=== PATIENT | female | born 1935 ===

== ENCOUNTER 2020-08-23 06:44 | Outpatient (CLI) | payer MEDICARE, SELFPAY ==
[2020-08-23 07:18] VITALS: BMI 24.4
--- NOTE | 2020-08-23 07:21 | ECG_ITS ---
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 Interpretive Statements NAME OF STUDY: LEXISCAN SESTAMIBI STRESS TEST INDICATION: Left bundle branch block PROCEDURE: At the baseline, the blood pressure was 156/63 mmHg with a heart rate of 50 bpm. The electrocardiogram showed sinus bradycardia, normal axis with left bundle branch block. The Lexiscan was infused over a period of 20 seconds. A total of 0.4 milligrams of Lexiscan was infused. The stress phase was continued for a total of 5 minutes. Heart rate at the end of the stress phase was 70 bpm with a blood pressure of 174/63 mmHg. The EKG at the peak infusion revealed sinus rhythm with artifact and left bundle branch block. Sestamibi was injected 20 seconds after the Lexiscan infusion. Blood pressure at the end of the recovery phase was 175/57 mmHg with a heart rate of 66 beats per minute. CONCLUSION: 1. Nondiagnostic EKG with LexiScan infusion given baseline left bundle branch block. 2. No LexiScan induced chest pain or cardiac arrhythmia. 3. Normal blood pressure and heart rate response. 4. Sestamibi/sestamibi perfusion scan pending; see separate report. Electronically Signed On 08-28-2020 17:44:51 CDT by Delmy Elizabeth M.D. [id number]
--- NOTE | 2020-08-23 07:21 | NMCV_ITS ---
NM nehemiah perf SPECT r/s* [id number] Quirino, Rena Age: 84 Gender: F : 1935 Exam Date: 08/23/2020 07:49 Ordering Phys: Delmy Elizabeth MD ([email or web address]) Technologist: BROOK Mosquera Exam Location: [facility] Indications: LBBB STRESS TEST Please see separate stress test report in [facility] for full findings IMAGE PROTOCOL Rest/Stress 1 Lexiscan Day Radiopharmaceutical Dose (mCi) Administration Site Administered by Rest: Tc-99m 10.7 IV BROOK Espinoza Sestamibi Stress:Tc-99m 32.7 IV BROOK Mosquera Sestamiavani Rest: 23-Aug-2020 60 Discovery 630 Stress: 23-Aug-2020 30 Discovery 630 0.4mg Lexiscan. Images obtained in supine and prone position. SPECT RESULTS Technical Quality: Excellent Raw Data Analysis: Normal Image Corrections: No attenuation or motion correction applied Summed Stress Score: 0 Summed Rest Score: 0 Summed Difference Score: 0 PERFUSION FINDINGS SPECT images demonstrate homogeneous tracer distribution throughout the myocardium. FUNCTIONAL RESULTS (calculated via Gated SPECT) Stress Image LV EF (%): 76 Stress EDV (mL):63 TID: 0.88 Stress ESV (mL):15 FUNCTIONAL FINDINGS: The left ventricle is normal in size. Transient Ischemia Dilatation of 0.88. There is normal left ventricular systolic function. The left ventricular ejection fraction is normal with a value of 76%. There is normal left ventricular wall thickening with no regional wall motion abnormality. Normal end diastolic and end systolic volumes. IMPRESSIONS 1. Myocardial perfusion imaging is normal. 2. Overall left ventricular systolic function is normal without regional wall motion abnormalities. 3. The left ventricular ejection fraction is normal with a value of 76%. 4. Scan indicates low risk for cardiac events. Delmy Elizabeth MD (Electronically Signed) Final Date: 28 August 2020 17:42 S
[2020-08-23 08:46] VITALS: BP 175/57; PULSE 66
[2020-08-23] MEDS: regadenoson 0.4 Mg/5 ml Syringe IVP (08:46)
== END 2020-08-23 06:45 | disposition home or self-care (01) ==
LOC: CDL 06:47
PROVIDERS: PCP Internal Medicine; Visit Provider Internal Medicine Cardiovascular Disease
DX: I44.7 Left bundle-branch block, unspecified (principal)
CPT/HCPCS: 78452; 93017; A9500; J2785

== ENCOUNTER 2020-09-08 09:07 | Emergency (ER) | payer MEDICARE, SELFPAY ==
[2020-09-08] VITALS (22 sets, daily range): BP systolic 171–199; BP diastolic 57–99; PULSE 53–75; RESP 15–26; TEMP 36.5; O2SAT 86–100
--- NOTE | 2020-09-08 09:09 | XRR_ITS ---
PROCEDURE INFORMATION: Exam: XR Chest Exam date and time: 09/08/2020 9:09 AM Age: 84 years old Clinical indication: Cough TECHNIQUE: Imaging protocol: XR of the chest. Views: 1 view. COMPARISON: No relevant prior studies available. FINDINGS: Lungs: Bilateral prominent interstitial markings with mild increased vascular markings. No focal consolidation. Pleural spaces: Unremarkable. No pleural effusion. No pneumothorax. Heart/Mediastinum: Cardiac silhouette mildly enlarged. Aortic calcifications noted. Bones/joints: No acute bony abnormality appreciated. XR/XR chest 1V portable [id number] IMPRESSION: Nonspecific mildly increased interstitial markings bilaterally with prominent vascularity and mild enlargement of the cardiac silhouette. Findings may represent mild fluid overload versus nonspecific infectious or inflammatory airways process. No focal consolidation.
--- NOTE | 2020-09-08 09:09 | CTR_ITS ---
PROCEDURE INFORMATION: Exam: CT Head Without Contrast Exam date and time: 09/08/2020 9:09 AM Age: 84 years old Clinical indication: Altered mental status/memory loss and visual disturbance; Confusion or disorientation; Additional info: Headache TECHNIQUE: Imaging protocol: Computed tomography of the head without contrast. Radiation optimization: All CT scans at this facility use at least one of these dose optimization techniques: automated exposure control; mA and/or kV adjustment per patient size (includes targeted exams where dose is matched to clinical indication); or iterative reconstruction. COMPARISON: No relevant prior studies available. RADIATION DOSE METRICS: Total DLP (mGy-cm): 688.03 FINDINGS: Brain: No intracranial hemorrhage. Generalized cerebral and cerebellar atrophy. Mild decreased attenuation of the periventricular white matter which is nonspecific but compatible with chronic microvascular ischemia. Scattered subcentimeter chronic appearing lacunar infarcts within the bilateral basal ganglia, left thalamus, roselia to the left of midline, and left cerebellar hemisphere. No evidence of acute territorial infarct. Normal de la torre-white differentiation. No abnormal mass effect or midline shift. No extra-axial fluid collection. Cerebral ventricles: Mild ventriculomegaly in the setting of atrophy. No evidence of hydrocephalus. Paranasal sinuses: No acute sinusitis. Solitary opacified right posterior ethmoid air cell. 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 Mastoid air cells: Visualized mastoid air cells are well aerated. Bones/joints: No acute fracture. Old dina holes incidentally noted right frontal and parietal bones. Soft tissues: Unremarkable. CT/CT head wo con* [id number] IMPRESSION: 1. No acute findings on non-contrast CT. 2. Age related atrophy and likely chronic microvascular Radiation Dose CTDIVOL = (mGy): DLP = 688.03 (mGy-cm)
--- NOTE | 2020-09-08 09:10 | ECG_ITS ---
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 Measurements Intervals [place] Rate: 53 P: 26 [place]: 163 QRS: -11 QRSD: 144 T: 83 QT: 459 QTc: 431 Interpretive Statements SINUS BRADYCARDIA LEFT BUNDLE BRANCH BLOCK [120+ ms QRS DURATION, 80+ ms Q/S IN V1/V2, 85+ ms R IN I/aVL/V5/V6] No previous ECG available for comparison Electronically Signed On 09-09-2020 21:02:54 CDT by Kim Amaro M.D. [id number]
--- NOTE | 2020-09-08 09:16 | W.ED.GENADLT ---
HPI - General Adult General: Chief complaint: Neuro Symptoms/Deficit Stated complaint: RIGHT FACIAL DROOP; SLURRED SPEECH Time Seen by Provider: 09/08/20 09:08 History of Present Illness: HPI narrative: This patient is a 84-year-old female who presents to the emergency department for strokelike symptoms. Last known well time was approximately 3 hours ago around 6 AM this morning. Patient reportedly had a stroke in 2015 at that time did have TPA given to her in [place]. Patient has inability to speak at this time has a leftward gaze right-sided facial droop and inability to use her right side. Patient mumbles and has dysarthria. Does not follow instructions. Code stroke was called. Patient last known blood pressure was 200 systolic. Nursing staff try to get an accurate blood pressure. Concerning for most likely not be a candidate for TPA due to blood pressure and her age of 84. We will defer to neurology. We will continue to monitor patient. Stroke protocol is active. Location: face, mouth, eyes, right and upper extremity Associated symptoms: Reports headache(s); Deny chest pain, dyspnea, nausea, rash, palpitations or vomiting Review of Systems General: Reports: 10 or more systems reviewed and unremarkable except in HPI and below, ROS unobtainable due to medical condition and ROS unobtainable due to mental status Const: Denies: fever(s), chills, body aches or fatigue Eyes: Denies: change in vision or blurry vision ENMT: Denies: throat pain, hoarseness or mouth pain Card: Denies: chest pain, palpitations, irregular heart rhythm, edema, swelling of feet/ankles or lightheadedness Resp: Denies: dyspnea, productive cough, non-productive cough, wheezing or pain on inspiration GI: Denies: abdominal pain, nausea or vomiting : Denies: flank pain, difficulty voiding, dysuria, urinary frequency, urinary urgency or urinary hesitancy Musc: Denies: neck pain, back pain, extremity pain, extremity swelling, joint pain, joint swelling, joint redness, joint warmth or limited range of motion Skin/Breast: Denies: rash, pruritus, erythema or skin tenderness Neuro: Reports: headache(s), numbness in extremities, weakness in extremities, sensory changes, difficulty walking, Slurred speech present and difficulty communicating thoughts Psych: Denies: anxiety or depression PFSH ED PFSH: Medical History Diabetes History of CVA (cerebrovascular accident) HTN (hypertension) Hx of deep venous thrombosis Hx of seizure disorder Rheumatoid arthritis Surgical History Hx of cataract surgery Hx of cholecystectomy Social History Smoking and tobacco status: never smoked Alcohol intake: never Physical Exam Const: COMMON NORMALS: no acute distress, average body habitus, no limitations, healthy appearing, alert and well nourished HENMT: COMMON NORMALS: normocephalic, atraumatic, hearing grossly normal bilaterally, external ears normal, EAC's normal, TM's normal bilaterally, Normal external nose present, Normal nasal mucous membranes and turbinates present, moist oral mucous membranes, oropharynx normal, dentition normal and gingiva normal HEAD & SCALP: normocephalic and atraumatic FACE & SINUS: Flattened naso-labial fold present Right NOSE: Normal external nose present and Normal nasal mucous membranes and turbinates present EXTERNAL EAR: Yes external ears normal EXTERNAL AUDITORY CANAL: EAC's normal TYMPANIC MEMBRANE: TM's normal bilaterally Neck/C-Spine: COMMON NORMALS: full ROM, no lymphadenopathy, supple, no JVD, Thyroid normal and No carotid bruits THYROID: Thyroid normal Chest: COMMONS NORMALS: normal inspection of the chest, normal palpation of entire chest wall, normal inspection of the breasts and normal palpation of the breasts Breast/axilla inspection: Yes normal inspection of the breasts BREAST/AXILLA PALPATION: Yes normal palpation of the breasts Resp: COMMON NORMALS: normal respiratory effort, No retractions, No use of accessory muscles, clear to auscultation bilaterally and percussion normal AUSCULTATION: clear to auscultation bilaterally PERCUSSION: percussion normal Cardio: COMMON NORMALS: no JVD, regular rate, regular rhythm, S1 normal heart sound present, S2 normal heart sound present, No gallops present (Cardio), No clicks present (Cardio), No murmurs present (Cardio), No rub (Cardio) and Peripheral pulses 2+ throughout RATE: regular rate RHYTHM: regular rhythm HEART SOUNDS: S1 normal heart sound present and S2 normal heart sound present PERIPHERAL PULSES: Peripheral pulses 2+ throughout GI: COMMON NORMALS: Normal to inspection, nondistended, normoactive bowel sounds present, Soft to palpation, non-tender, No hepatosplenomegaly present, no masses and no bruits PALPATION: Yes Soft to palpation and Yes No hepatosplenomegaly present : COMMON NORMALS: Yes no CVA tenderness, Yes normal external appearance, Yes normal appearance of the vagina, Yes normal appearance of the cervix, Yes normal bimanual exam, Yes No adnexal tenderness and Yes no masses BLADDER/KIDNEY EXAM: Yes no CVA tenderness BIMANUAL EXAM - VAGINA & UTERUS: Yes normal bimanual exam Back/Pelvis: COMMON NORMALS: no CVA tenderness, thoracic and lumbar spine normal to inspection, no thoracic nor lumbar tenderness, thoraco-lumbar ROM normal and straight leg raise negative bilaterally Extremity: COMMON NORMALS: normal to inspection, full ROM, capillary refill normal, no joint enlargement, no clubbing, cyanosis or edema, no calf tenderness and no pedal edema Neuro: SENSORIUM/ORIENTATION: Yes alert and Yes Orientation impaired CRANIAL NERVES: Yes CN III (oculomotor) CN III laterality: bilateral, Yes CN VII (facial) Laterality: right, Yes CN XI (spinal accessory) CN XI findings: right shoulder elevation abnormal and right lateral head rotation abnormal and Yes CN XII (hypoglossal) CN XII findings: deviation of tongue to the left SPEECH: abnormal speech Details: garbled GAIT: Yes Unable to assess gait SENSORY EXAM: Yes extremities (Right-sided deficit weakness and sensory loss) Course Reevaluation(s): Reevaluation #1: I did discuss at length with patient's daughter Jazmine Rose,. She request the patient be given TPA if it is available and there is no contraindications. She understands the of the risk of causing a severe hemorrhagic stroke from an ischemic stroke and the patient's advanced age and hypertension. She states she understands her wishes of TPA can be given approved by neurology she request that be given. We will continue to monitor the patient neurology is doing telemedicine assessment at this time. Time: 09:46 Reevaluation #2: Daughter is at the bedside with telemedicine with Dr. Solano neurology from [facility]. Dr. Solano is recommending TPA CTA and hypertension control. Blood pressure 187/72 at this time. Patient be given 10 of hydralazine. Family member state understanding the risk and concerns of TPA Time: 09:56 Reevaluation #3: Patient's blood pressure back into the 190s. Additional hydralazine to be given. Time: 10:49 Consultations: Consultation #1: I discussed at length with Dr. Solano neurology telestroke from [facility]. She will sign an and do evaluation on patient. Time: 09:36 Consultation #2: I did discuss at length with [facility] who deferred due to being on ICU and ER divert. Will contact back at [facility] for transfer. Helicopter transport ETA 10 minutes. Time: 10:02 Consultation #3: I have discussed at length with neurology at [facility] Dr. Sweeney. He has accepted this patient for transfer straight to the neurological floor. He also recommends TPA he request hold CTA of the head and transport the patient and they will do the CTA upon arrival to [facility]. Patient's family is aware and they are still aware of the significant risk of intracranial hemorrhage. They state understanding. Patient be transported soon as possible Time: 10:13 Vital Signs: Vital signs: Vital Signs Temperature 97.7 F 09/08/20 09:16 Pulse Rate 68 09/08/20 11:05 Respiratory Rate 21 H 09/08/20 11:05 Blood Pressure 173/69 09/08/20 11:05 Pulse Oximetry 99 09/08/20 11:05 MDM - General Adult MDM Narrative: Medical decision making narrative: This patient is a 84-year-old female who presents to the emergency department for strokelike symptoms. Last known well time was approximately 3 hours ago around 6 AM this morning. Patient reportedly had a stroke in 2014 at that time did have TPA given to her in [place]. Patient has inability to speak at this time has a leftward gaze right-sided facial droop and inability to use her right side. Patient mumbles and has dysarthria. Does not follow instructions. Code stroke was called. Patient last known blood pressure was 200 systolic. Nursing staff try to get an accurate blood pressure. Concerning for most likely not be a candidate for TPA due to blood pressure and her age of 84. We will defer to neurology. We will continue to monitor patient. Stroke protocol is active I did discuss at length with patient's daughter Jazmine Rose,. She request the patient be given TPA if it is available and there is no contraindications. She understands the of the risk of causing a severe hemorrhagic stroke from an ischemic stroke and the patient's advanced age and hypertension. She states she understands her wishes of TPA can be given approved by neurology she request that be given. We will continue to monitor the patient neurology is doing telemedicine assessment at this time. I discussed at length with Dr. Solano neurology telestroke from [facility]. She will sign an and do evaluation on patient. Daughter is at the bedside with telemedicine with Dr. Solano neurology from [facility]. Dr. Solano is recommending TPA CTA and hypertension control. Blood pressure 187/72 at this time. Patient be given 10 of hydralazine. Family member state understanding the risk and concerns of TPA I have discussed at length with neurology at [facility] Dr. Sweeney. He has accepted this patient for transfer straight to the neurological floor. He also recommends TPA he request hold CTA of the head and transport the patient and they will do the CTA upon arrival to [facility]. Patient's family is aware and they are still aware of the significant risk of intracranial hemorrhage. They state understanding. Patient be transported soon as possible Lab Data: Labs: Lab Results 09/08/20 09/08/20 09/08/20 Range/Units 09:16 09:16 09:16 WBC 6.6 (4.0-10.0) 10^3/ uL RBC 4.42 (4.1-5.3) 10^6/u L Hgb 13.3 (11.5-15.3) g/dL Hct 39.9 (37.0-47.0) % MCV 90.3 (81-99) fL MCH 30.1 (28.0-34.0) pg MCHC 33.3 (30.0-36.0) g/dL RDW 12.9 (12.1-15.1) % Plt Count 217 (130-400) 10^3/c mm MPV 9.4 (7.4-10.4) fL Neut % (Auto) 70.2 % Lymph % (Auto) 20.1 % Mccone % (Auto) 7.0 % Eos % (Auto) 2.1 % Baso % (Auto) 0.3 % Neut # (Auto) 4.61 (1.8-7.7) 10^3/u L Lymph # (Auto) 1.3 (0.8-4.8) 10^3/u L Mccone # (Auto) 0.5 (0.2-0.9) 10^3/u L Eos # (Auto) 0.1 (0.0-0.8) 10^3/u L Baso # (Auto) 0.0 (0.0-0.1) 10^3/u L Nucleated RBC % (a uto) 0 % Nucleated RBCs # 0.0 /100WBC PT 13.80 (12.1-14.9) SECO NDS INR 1.02 (0.8-1.2) APTT 23.7 L (23.9-36.7) SECO NDS Sodium 139 (136-145) mmol/L Potassium 4.6 (3.5-5.1) mmol/L Chloride 104 (98-107) mmol/L Carbon Dioxide 23 (22-29) mmol/L Anion Gap 16.6 (5-19) BUN 18 (8-23) mg/dL Creatinine 1.0 H (0.5-0.9) mg/dL GFR Calculation Not Reportable Glucose 252 H (65-115) mg/dL POC Glucose (70-110) mg/dL Calculated Osmolal ity 298 H (285-295) mOsm/k g Calcium 9.4 (8.5-10.5) mg/dL Total Bilirubin 0.3 (0.15-1.2) mg/dL AST 13 (0-32) U/L ALT 20 (0-33) U/L Alkaline Phosphata se 99 (35-105) IU/L Troponin T Baselin e (0-10) ng/L NT-Pro-B Natriuret Pep 509 H (0-450) pg/mL Total Protein 6.5 L (6.6-8.7) g/dL Albumin 4.3 (3.5-5.2) g/dL Globulin 2.2 (1.3-4.6) g/dL 09/08/20 09/08/20 Range/Units 09:16 09:30 WBC (4.0-10.0) 10^3/ uL RBC (4.1-5.3) 10^6/u L Hgb (11.5-15.3) g/dL Hct (37.0-47.0) % MCV (81-99) fL MCH (28.0-34.0) pg MCHC (30.0-36.0) g/dL RDW (12.1-15.1) % Plt Count (130-400) 10^3/c mm MPV (7.4-10.4) fL Neut % (Auto) % Lymph % (Auto) % Mccone % (Auto) % Eos % (Auto) % Baso % (Auto) % Neut # (Auto) (1.8-7.7) 10^3/u L Lymph # (Auto) (0.8-4.8) 10^3/u L Mccone # (Auto) (0.2-0.9) 10^3/u L Eos # (Auto) (0.0-0.8) 10^3/u L Baso # (Auto) (0.0-0.1) 10^3/u L Nucleated RBC % (a uto) % Nucleated RBCs # /100WBC PT (12.1-14.9) SECO NDS INR (0.8-1.2) APTT (23.9-36.7) SECO NDS Sodium (136-145) mmol/L Potassium (3.5-5.1) mmol/L Chloride (98-107) mmol/L Carbon Dioxide (22-29) mmol/L Anion Gap (5-19) BUN (8-23) mg/dL Creatinine (0.5-0.9) mg/dL GFR Calculation Glucose (65-115) mg/dL POC Glucose 256 H (70-110) mg/dL Calculated Osmolal ity (285-295) mOsm/k g Calcium (8.5-10.5) mg/dL Total Bilirubin (0.15-1.2) mg/dL AST (0-32) U/L ALT (0-33) U/L Alkaline Phosphata se (35-105) IU/L Troponin T Baselin e 13 H (0-10) ng/L NT-Pro-B Natriuret Pep (0-450) pg/mL Total Protein (6.6-8.7) g/dL Albumin (3.5-5.2) g/dL Globulin (1.3-4.6) g/dL Imaging Data^: CT Head: Attestation: I personally reviewed and interpreted this imaging study as follows: Radiologist's impression: IMPRESSION: 1. No acute findings on non-contrast CT. 2. Age related atrophy and likely chronic microvascular EKG Data^: EKG 1: Attestation: I personally reviewed and interpreted this EKG as follows: EKG interpretation date: 09/08/20 EKG interpretation time: : Prior EKG tracings: not available for review Interpretation: Sinus bradycardia with a left bundle branch block heart rate 53 Computer generated interpretation: Head CT 09/08/20 09:09 IMPRESSION: 1. No acute findings on non-contrast CT. 2. Age related atrophy and likely chronic microvascular Radiation Dose CTDIVOL = (mGy): DLP = 688.03 (mGy-cm) Critical Care Time Critical Care Time: Critical Care Time: Yes Total Critical Care Time: 120 Attestation: Critical care in the emergency department TPA given for acute stroke transfer to [facility] Discharge Plan Discharge Patient Disposition: Xfer Short-Term Hosp Clinical Impression: Acute CVA (cerebrovascular accident), Hx of seizure disorder, History of CVA (cerebrovascular accident), HTN (hypertension) Condition: Stable Referrals: Stephanie Jean DO [Primary Care Provider] - Coding Level of Care Code ED Metallurgical Engineer for Chg Fwd Exam Comprehensive
[2020-09-08 09:25] LABS: Basophils % 0.3 %; Eosinophils # 0.1 10^3/uL (0.0-0.8); Eosinophils % 2.1 %; Hematocrit 39.9 % (37.0-47.0); Hemoglobin 13.3 g/dL (11.5-15.3); Lymphocytes # 1.3 10^3/uL (0.8-4.8); Lymphocytes % 20.1 %; Mean Corpuscular HGB Conc 33.3 g/dL (30.0-36.0); Mean Corpuscular Hemoglobin 30.1 pg (28.0-34.0); Mean Corpuscular Volume 90.3 fL (81-99); Mean Platelet Volume 9.4 fL (7.4-10.4); Monocytes # 0.5 10^3/uL (0.2-0.9); Neutrophils # 4.61 10^3/uL (1.8-7.7); Neutrophils % 70.2 %; Nucleated Red Blood Cells % 0 %; Platelet Count 217 10^3/cmm (130-400); Red Blood Count 4.42 10^6/uL (4.1-5.3); Red Cell Distribution Width 12.9 % (12.1-15.1); White Blood Count 6.6 10^3/uL (4.0-10.0)
[2020-09-08 09:34] LABS: Glucose Point of Care 256 mg/dL (70-110)
--- NOTE | 2020-09-08 09:34 | NUR.SHIFT ---
Patient is severely aphasic, unable to answer questions at this time. No outward s/s of pain or discomfort are noted.
[2020-09-08 09:49] LABS: INR 1.02 (0.8-1.2)
[2020-09-08 09:50] LABS: Partial Thromboplastin Time 23.7 SECONDS (23.9-36.7)
[2020-09-08 09:57] LABS: Alanine Aminotransferase 20 U/L (0-33); Albumin Level 4.3 g/dL (3.5-5.2); Alkaline Phosphatase 99 IU/L (35-105); Anion Gap 16.6 (5-19); Aspartate Amino Transferase 13 U/L (0-32); Blood Urea Nitrogen 18 mg/dL (8-23); Calcium 9.4 mg/dL (8.5-10.5); Carbon Dioxide 23 mmol/L (22-29); Chloride 104 mmol/L (98-107); Globulin 2.2 g/dL (1.3-4.6); Glucose 252 mg/dL (65-115); NT Pro B Type Natriuretic Pept 509 pg/mL (0-450); Osmolality Calculated 298 mOsm/kg (285-295); Potassium 4.6 mmol/L (3.5-5.1); Sodium 139 mmol/L (136-145); Total Bilirubin 0.3 mg/dL (0.15-1.2); Total Protein 6.5 g/dL (6.6-8.7)
[2020-09-08] MEDS: hyDRALAzine 20 mg/mL INJ 1 mL 5 MG IVP (10:02)
[2020-09-08 10:03] LABS: Troponin(5th) Baseline 13 ng/L (0-10)
[2020-09-08] MEDS: hyDRALAzine 20 mg/mL INJ 1 mL 10 MG IVP (10:45)
--- NOTE | 2020-09-08 11:11 | PC.NURSE ---
Tele Stroke with Jose Alejandro at this time. Patient assessed by Dr. Solano. Patients daughter at bedside.
[2020-09-08 11:38] LABS: Add Urine Microscopic? NO; Charge for UA Resulting for Rev
[2020-09-08 11:53] LABS: Urine Appearance Clear (CLEAR); Urine Color Yellow (Yellow)
[2020-09-08 11:54] LABS: Bilirubin Urine Neg (Negative); Blood Urine Neg (Negative); Glucose Urine UA 2+ (Normal); Ketones Urine Negative (Negative); Leukocyte Esterase Urine Negative (Negative); Nitrate Urine Negative (Negative); Protein Urine Neg (Negative); Urobilinogen Urine Norm (Negative); pH Urine 5 (5-7)
--- NOTE | 2020-09-08 20:04 | PC.NURSE ---
Dr. Solano with [facility] given VO for TPA, daughter consenting to patient receiving medication. BP parameters received 180/110. VO received for Hydralazine 5mg IVP now
== END 2020-09-08 11:32 | disposition short-term general hospital (02) ==
PROVIDERS: Emergency Provider Emergency Medicine; PCP Internal Medicine
DX: I63.9 Cerebral infarction, unspecified (principal); I10 Essential (primary) hypertension; Z86.73 Personal history of transient ischemic attack (TIA), and cerebral infarction without residual deficits; G40.909 Epilepsy, unspecified, not intractable, without status epilepticus; E11.9 Type 2 diabetes mellitus without complications
CPT/HCPCS: 36416; 70450; 71045; 80053; 81003; 82962; 83880; 84484; 85025; 85610; 85730; 93005; 96374; 96375; 96376; 99291; 99292; J0360; J2997